=== PATIENT | female | born 1990 | race Caucasian/White ===

== ENCOUNTER → 2018-06-04 | Outpatient (CLI) | payer BC | LOC: MC.RAD 09:12 | DX: N64.59 Other signs and symptoms in breast (principal); Z98.890 Other specified postprocedural states ==

== ENCOUNTER 2020-06-18 15:11 | Emergency (ER) | payer BC ==
[~2020-06-18] VITALS: Ht 157.5 cm; Wt 63.6 kg
[2020-06-18 15:23] VITALS: BP 119/84; TEMP 98
[2020-06-18 16:08] LABS: BASO # 0.1 (0.0-0.2); BASO % 0.5 % (0.0-2.0); EOS # 0.1 (0.0-0.7); EOS % 1.1 % (0-4.0); GRAN # 7.3 (1.4-6.5); GRAN % 63.3 % (42.2-75.2); HEMATOCRIT 40.9 % (37.0-47.0); HEMOGLOBIN 13.3 g/dl (12.5-16.0); LYMPH # 3.2 (1.2-3.4); LYMPH % 27.6 % (20.0-51.0); MEAN CELL VOLUME 96 fl (80.0-100.0); MEAN CORPUSCULAR HEMOGLOBIN 31 pg (27.0-31.0); MEAN CORPUSCULAR HGB CONC 33 g/dl (33.0-37.0); MEAN PLATELET VOLUME 9.4 fl (7.4-10.4); MONO # 0.8 (0.1-0.6); PLATELET COUNT 291 K/mm3 (130-400); RED BLOOD COUNT 4.28 M/mm3 (4.10-5.30); REDCELL DISTRIBUTION WIDTH-CV 12.7 % (11.5-14.5)
[2020-06-18 16:18] LABS: BILIRUBIN,TOTAL 0.8 mg/dL (0.0-1.0); C-REACTIVE PROTEIN 0.7 mg/dL (0.0-0.9); CALCIUM 9.9 mg/dL (8.4-10.2); CREATININE, serum 0.67 (0.52-1.25); POTASSIUM 4.2 mmol/L (3.4-5.0); TOTAL PROTEIN 8.9 gm/dL (6.4-8.2)
[2020-06-18 16:19] LABS: COLLECTION METHOD CLEAN CATCH
[2020-06-18 16:24] LABS: MUCOUS Present /lpf; PH 6 (5-8); URINE APPEARANCE Hazy; URINE BACTERIA Rare /hpf; URINE BILIRUBIN Negative (NEGATIVE); URINE BLOOD 1+ (NEGATIVE); URINE COLOR Yellow; URINE GLUCOSE Negative (NEGATIVE); URINE KETONE Negative (NEGATIVE); URINE LEUKOCYTE ESTERASE Negative (NEGATIVE); URINE NITRATE Negative (NEGATIVE); URINE PROTEIN(semi-quant) Negative (NEGATIVE); URINE RBC 0-2 /hpf; URINE UROBILINOGEN Negative (NEGATIVE)
[2020-06-18 16:32] LABS: PROLACTIN 19.9 ng/mL (3.0-18.6)
[2020-06-18] MEDS ORDERED: KEPPRA 500MG500 MG PO (17:33)
[2020-06-18 17:52] VITALS: PULSE 76
== END 2020-06-18 17:52 | disposition home or self-care (01) ==
LOC: COL.ER 15:11
PROVIDERS: Nurse Practitioner
DX: G40.909 Epilepsy, unspecified, not intractable, without status epilepticus (principal); Z32.02 Encounter for pregnancy test, result negative
CPT/HCPCS: J1953

== ENCOUNTER 2021-05-07 02:03 | Emergency (ER) | payer BC ==
[~2021-05-07] VITALS: Ht 157.5 cm; Wt 56.8 kg
[~2021-05-07 02:03] MED LIST: KEPPRA 500MG500 MG PO
[2021-05-07 02:42] LABS: BASO % 0.3 % (0.0-2.0); EOS # 0.2 K/mm3 (0.0-0.7); EOS % 1.7 % (0-4.0); GRAN # 5.9 K/mm3 (1.4-6.5); GRAN % 67.9 % (42.2-75.2); HEMOGLOBIN 11.2 g/dl (12.5-16.0); LYMPH # 1.8 K/mm3 (1.2-3.4); LYMPH % 20.9 % (20.0-51.0); MEAN CELL VOLUME 82 fl (80.0-100.0); MEAN CORPUSCULAR HEMOGLOBIN 27 pg (27.0-31.0); MEAN CORPUSCULAR HGB CONC 33 g/dl (33.0-37.0); MEAN PLATELET VOLUME 11.6 fl (7.4-10.4); MONO # 0.8 K/mm3 (0.1-0.6); PLATELET COUNT 254 K/mm3 (130-400); RED BLOOD COUNT 4.21 M/mm3 (4.10-5.30); REDCELL DISTRIBUTION WIDTH-CV 16.7 % (11.5-14.5)
[2021-05-07 02:45] LABS: HEMATOCRIT 34.4 % (37.0-47.0)
[2021-05-07 02:58] LABS: ALANINE AMINOTRANSFERASE 47 U/L (0-55); ALBUMIN 3.1 gm/dL (3.5-5.0); ALKALINE PHOSPHATASE 80 U/L (0-750); ANION GAP 10 mmol/L (7-16); AST,SGOT 42 U/L (5-34); BILIRUBIN,TOTAL 0.4 mg/dL (0.2-1.2); BLOOD UREA NITROGEN 10 mg/dL (7-19); CALCIUM 10.2 mg/dL (8.4-10.2); CARBON DIOXIDE 21 mmol/L (22-29); CHLORIDE 107 mmol/L (98-107); CREATININE, serum 0.63 mg/dL (0.57-1.11); GLUCOSE 100 mg/dL (70-99); POTASSIUM 3.4 mmol/L (3.5-4.5); SODIUM 138 mmol/L (136-145)
[2021-05-07 03:31] LABS: LIPASE 83 U/L (8-78)
[2021-05-07 03:36] LABS: TROPONIN-I < 0.010 ng/mL (0.00-0.033)
[2021-05-07 04:12] VITALS: BP 108/73; PULSE 86; TEMP 98.5
== END 2021-05-07 04:12 | disposition home or self-care (01) ==
LOC: COL.ER 02:03
PROVIDERS: Emergency Medicine
DX: O26.892 Other specified pregnancy related conditions, second trimester (principal); R10.13 Epigastric pain; Z3A.00 Weeks of gestation of pregnancy not specified
CPT/HCPCS: J2765

== ENCOUNTER 2021-10-22 07:47 | Inpatient (IN) | payer BC ==
[~2021-10-22] VITALS: Ht 160 cm; Wt 66.8 kg
--- NOTE | 2021-10-23 19:10 | NUR ---
G1L0. 40-0. Ambulatory to LDR 6 with spouse. Clean gown on. EFM and TOCO explained and applied. Plan of care and questions answered. Pt speaks little french but is able to translate for her. Pt denies contractions, leaking of fluids or vaginal bleeding. Reports good movment. VS taken. 1935: IV started and labs obtained via IV site. LR bolus infusing. 2003: called and updated on pt. See physican notification. 2014: SVE closed/thigh/high. Cytotec explained and given PO per orders. All of pts questions answered. Call light within reach.
[2021-10-23] MEDS ORDERED: KEPPRA 500MG500 MG PO (19:56)
[2021-10-23] MEDS ORDERED: FOLIC ACID 40400 MCG PO (19:57)
[2021-10-23 20:00] VITALS: BP 118/67; PULSE 64; TEMP 98.1
[2021-10-23 20:30] VITALS: BP 123/75; PULSE 71
[2021-10-23 20:34] LABS: BASO % 0.3 % (0.0-2.0); EOS # 0.1 K/mm3 (0.0-0.7); EOS % 1.2 % (0.0-4.0); GRAN % 76.6 % (42.2-75.2); HEMATOCRIT 37.3 % (37.0-47.0); HEMOGLOBIN 12.7 g/dl (12.5-16.0); LYMPH # 1.6 K/mm3 (1.2-3.4); LYMPH % 13.9 % (20.0-51.0); MEAN CELL VOLUME 87 fl (80.0-100.0); MEAN CORPUSCULAR HEMOGLOBIN 30 pg (27-31); MEAN CORPUSCULAR HGB CONC 34 g/dl (33.0-37.0); MEAN PLATELET VOLUME 11.6 fl (7.4-10.4); MONO # 0.9 K/mm3 (0.1-0.6); MONO % 7.7 % (1.7-9.3); PLATELET COUNT 237 K/mm3 (130-400); RED BLOOD COUNT 4.28 M/mm3 (4.10-5.30); REDCELL DISTRIBUTION WIDTH-CV 14.5 % (11.5-14.5)
[2021-10-23 21:00] VITALS: BP 103/62; PULSE 65
[2021-10-23 21:30] VITALS: BP 117/65; PULSE 65
[2021-10-23 22:00] VITALS: BP 111/74; PULSE 68
[2021-10-24] VITALS (66 sets, daily range): BP systolic 96–149; BP diastolic 54–81; PULSE 51–121; TEMP 98.1–99.8
--- NOTE | 2021-10-24 06:30 | NUR ---
Report received, care assumed. Patient rest in bed, sleeps between disturbances. Plan of care reviewed with patient and spouse and questions answered. EFM off at this time for personal hygiene.
--- NOTE | 2021-10-24 08:00 | NUR ---
0730 Pitocin started at 2mu per orders and protocol.
--- NOTE | 2021-10-24 08:20 | NUR ---
Roles to room, discusses plan of care with patient and spouse, reviews FHR tracing.
--- NOTE | 2021-10-24 09:57 | NUR ---
929 Patient request epidural. OPTOMETRIST ASSISTANT notified. IVF bolus started. 939 OPTOMETRIST ASSISTANT to room to place epidural. Patient sits upright on the side of the bed. FHR difficult to monitor in this position and intermittently traces maternal HR per spO2 tracing. 956 Test dose by OPTOMETRIST ASSISTANT. See anesthesia record for details of procedure.
--- NOTE | 2021-10-24 12:45 | NUR ---
Dr. Blake to room, SVE with AROM. 2 with clear fluid noted. Bedside sono by Dr. Blake confirms vertex presentation. IUPC placed by Dr. Blake.
--- NOTE | 2021-10-24 17:30 | NUR ---
1730 Dr. Blake at bedside, SVE - complete/+2. 1740 Patient begins pushing with contractions, Dr. Blake remains on unit reviewing FHR tracing.
--- NOTE | 2021-10-24 18:15 | NUR ---
1800 Patient pushing well, mays removed. Dr. Blake remains on unit reviewing FHR tracing. 1802 Dr. Blake to room, patient continues to push with contractions. 1810 Patient prepped for delivery. 181 JERSON Whipple assumes care of patient.
--- NOTE | 2021-10-24 18:56 | NUR ---
of female infnat by Dr Blake. 1858 Placenta delivers spont and intact, Pitocin gtt to bolus. Lochia large amount 1801 Methergine 0.2mg IM to LAT. St cath with large amount return clear yellow urine.
--- NOTE | 2021-10-24 19:00 | NUR ---
Perineal repair in progress.
--- NOTE | 2021-10-24 19:15 | NUR ---
Perineal repair complete, fundus firm with scant bleeding, no clots expressed. Pericare done, ice pack to perineum, bed together.
--- NOTE | 2021-10-24 19:18 | NUR ---
Left labia more sollen than R labia. Dr Blake checks for hematoma, none palpated. Ice pack placed.
--- NOTE | 2021-10-24 19:25 | NUR ---
Emesis 250cc.
--- NOTE | 2021-10-24 20:10 | NUR ---
emesis 200cc 2014 Zofran 4mg IV for nausea and vomitting
--- NOTE | 2021-10-24 21:45 | NUR ---
epidural dc'd, IV to INT. Pivot transfer to wheelchair and moved to post- room. Oriented to room, monitor, plan of care.
[2021-10-25 08:25] VITALS: BP 103/54; PULSE 62; TEMP 97.4
--- NOTE | 2021-10-25 09:11 | NUR ---
Initial visit; Parents thanked Undercoat Sprayer for offering congratulations and blessings for the of their daughter. Undercoat Sprayer thanked family for choosing [facility].
[2021-10-25 12:30] VITALS: BP 88/52; PULSE 85; TEMP 97.8
[2021-10-25 17:00] VITALS: BP 90/54; PULSE 70; TEMP 98
[2021-10-25 20:00] VITALS: BP 111/59; PULSE 78; TEMP 98.3
[2021-10-26 08:00] VITALS: BP 88/52; PULSE 86; TEMP 98.3
[2021-10-26] MEDS ORDERED: IBU800 M1 PO (10:13)
--- NOTE | 2021-10-26 10:21 | NUR ---
0941 YASMEEN RILEY LINEMAN APPRENTICE NOTIFIED THAT THE PT IS HAVING A HEADACHE AND FEELS BAD WHEN SITTING UP IN BED AND BETTER WHEN LAYING FLAT IN BED. HE WILL COME EVALUATE HER.
== END 2021-10-26 16:30 | disposition home or self-care (01) | DRG 768 ==
LOC: LDR 10-23 07:47 → OB 10-24 21:45
PROVIDERS: ADMIT Obstetrics & Gynecology
PROC: 10E0XZZ Delivery of Products of Conception, External Approach (ICD-10-PCS; principal; 2021-10-23)
PROC: 0DQR0ZZ Repair Anal Sphincter, Open Approach (ICD-10-PCS; 2021-10-23)
PROC: 10907ZC Drainage of Amniotic Fluid, Therapeutic from Products of Conception, Via Natural or Artificial Opening (ICD-10-PCS; 2021-10-23)
PROC: 3E0P7VZ Introduction of Hormone into Female Reproductive, Via Natural or Artificial Opening (ICD-10-PCS; 2021-10-23)
PROC: 3E033VJ Introduction of Other Hormone into Peripheral Vein, Percutaneous Approach (ICD-10-PCS; 2021-10-23)
DX: O99.354 Diseases of the nervous system complicating childbirth (principal); Z37.0 Single live birth; G40.909 Epilepsy, unspecified, not intractable, without status epilepticus; O72.1 Other immediate postpartum hemorrhage; O70.20 Third degree perineal laceration during delivery, unspecified; O90.89 Other complications of the puerperium, not elsewhere classified; R33.9 Retention of urine, unspecified; O89.4 Spinal and epidural anesthesia-induced headache during the puerperium; Z3A.40 40 weeks gestation of pregnancy; Z23 Encounter for immunization
CPT/HCPCS: J2210; J2405; J2590; J7120

== ENCOUNTER 2023-11-27 14:48 | Inpatient (IN) | payer MEDICAID ==
[~2023-11-27] VITALS: Ht 157.5 cm; Wt 64.5 kg
[~2023-11-27 14:48] MED LIST changes: +FOLIC ACID 40400 MCG PO; +IBU800 M1 PO
[2023-11-27 20:00] VITALS: BP 101/61; PULSE 63; TEMP 98.2
[2023-11-27] MEDS ORDERED: LR & Oxytocin 500 ML IV SCH ×3 (20:15)
[2023-11-27] MEDS ORDERED: miSOPROStol 25 MCG (1/4th of 100 MCG) TAB VG SCH (20:15)
[2023-11-27] MEDS ORDERED: LR 1,000 ML IV SCH ×2 (20:15)
[2023-11-27] MEDS ORDERED: Terbutaline 1 MG/ML 1 ML AMP SQ PRN (20:15)
[2023-11-27 20:50] LABS: BASO # 0.1 K/mm3 (0.0-0.2); BASO % 0.5 % (0.0-2.0); EOS # 0.1 K/mm3 (0.0-0.7); EOS % 1.2 % (0.0-4.0); GRAN # 6.7 K/mm3 (1.4-6.5); GRAN % 71.5 % (42.2-75.2); HEMATOCRIT 38.2 % (37.0-47.0); HEMOGLOBIN 12.8 g/dl (12.5-16.0); LYMPH # 1.8 K/mm3 (1.2-3.4); LYMPH % 19.2 % (20.0-51.0); MEAN CELL VOLUME 86 fl (80.0-100.0); MEAN CORPUSCULAR HEMOGLOBIN 29 pg (27-31); MEAN CORPUSCULAR HGB CONC 34 g/dl (33.0-37.0); MEAN PLATELET VOLUME 12.2 fl (7.4-10.4); MONO # 0.7 K/mm3 (0.1-0.6); MONO % 7.3 % (1.7-9.3); PLATELET COUNT 195 K/mm3 (130-400); RED BLOOD COUNT 4.47 M/mm3 (4.10-5.30)
--- NOTE | 2023-11-27 22:06 | NUR ---
PT STATE SHE IS NOT FEELING ANY CTX'S AT THIS TIME.
--- NOTE | 2023-11-27 22:42 | NUR ---
PT UP AND AMB TO BR TO VOID. NO COMPLAINTS AT THIS TIME.
[2023-11-27 23:00] VITALS: TEMP 97.9
[2023-11-28] VITALS (46 sets, daily range): BP systolic 91–143; BP diastolic 42–92; PULSE 51–75; TEMP 97.3–98.1
--- NOTE | 2023-11-28 08:00 | NUR ---
GLUCOMETER NOT READING PT'S WRISTBAND OR V NUMBER. GLUCOSE TAKEN AT THIS TIME. RESULT - 89
[2023-11-28] MEDS ORDERED: diphenhydrAMINE 50 MG/ML 1 ML VIAL IV PRN (09:00)
[2023-11-28] MEDS ORDERED: diphenhydrAMINE 25 MG CAP PO PRN (09:00)
[2023-11-28] MEDS ORDERED: Naloxone 0.4 MG/ML VIAL IV PRN ×2 (09:00→17:45)
[2023-11-28] MEDS ORDERED: ePHEDrine 50 MG/10 ML VIAL IV PRN (09:00)
[2023-11-28] MEDS ORDERED: Ondansetron 4 MG/2 ML VIAL IV PRN (09:00)
--- NOTE | 2023-11-28 09:00 | NUR ---
ROLES IN PT'S ROOM. DISCUSSING PLAN OF CARE WITH PT. PT VERBALIZES UNDERSTANDING.
--- NOTE | 2023-11-28 11:00 | NUR ---
GLUCOSE AT THIS TIME - 114
--- NOTE | 2023-11-28 14:10 | NUR ---
GLUCOSE AT THIS TIME - 101
--- NOTE | 2023-11-28 14:25 | NUR ---
1410 THIS RN AT BEDSIDE ASSESSING AND TALKING WITH PT. 1411 FHR HAVING DECELERATION 1411 PT WEDGED LEFT 1413 PT WEDGED RIGHT 1415 PT IN HIGH FOWLERS. PITOCIN SHUT OFF. 1416 SVE /-2. PT WEDGED LEFT AFTER SVE. 1420 FHR RECOVERING. THIS RN REMAINS AT BEDSIDE TILL 1425, REASSURING PT AND SUPPORT PERSON.
--- NOTE | 2023-11-28 14:35 | NUR ---
ROLES ON UNIT. DR ROLES AND THIS RN DISCUSS FHR DECELERATION. ROLES ORDERS TO RESTART PITOCIN ACCORDING TO PITOCIN PROTOCOL.
[2023-11-28] MEDS ORDERED: Acetaminophen 500 MG TAB PO SCH (17:45)
[2023-11-28] MEDS ORDERED: Measles/Mumps/Rubella Virus Vaccine Live w Diluent 0.5 ML VIAL SQ SCH (17:45)
[2023-11-28] MEDS ORDERED: oxyCODONE 5 MG TAB PO PRN (17:45)
[2023-11-28] MEDS ORDERED: Loratadine 10 MG TAB PO PRN (17:45)
[2023-11-28] MEDS ORDERED: Magnes Hydrox (MOM) 80 MG/ML 30 ML CUP PO PRN (17:45)
[2023-11-28] MEDS ORDERED: Mag/Al Hydrox/Simeth Susp 30 ML CUP PO PRN (17:45)
[2023-11-28] MEDS ORDERED: Phenylephrine/Mineral Oil/Petrolatum 57 GM TUBE RC PRN (17:45)
[2023-11-28] MEDS ORDERED: Witch Hazel 50% Pads Bulk TUB TP PRN (17:45)
[2023-11-28] MEDS ORDERED: Ibuprofen 800 MG TAB PO SCH (17:45)
[2023-11-28] MEDS ORDERED: MOTRIN 800800 MG/TAB PO (19:31)
[2023-11-29 07:25] VITALS: BP 103/53; PULSE 55; TEMP 98.2
[2023-11-29] MEDS ORDERED: Sennosides/Docusate 8.6-50 MG TAB PO SCH (08:00)
[2023-11-29] MEDS ORDERED: levETIRAcetam 500 MG TAB PO SCH (09:00)
--- NOTE | 2023-11-29 10:00 | NUR ---
Pt up to the bathroom. Pt was only able to void 100ml and reports she feels like she needs to go more but is not able to. Bladder scan done. Scan showed 1000ml urine in her bladder.
--- NOTE | 2023-11-29 10:30 | NUR ---
Straight cath done without complications. Encouraged pt up get up more frequently to void and call for assistance if needed. Call light within reach.
[2023-11-29 12:30] VITALS: BP 98/65; PULSE 64; TEMP 97.9
[2023-11-29 17:30] VITALS: BP 103/63; PULSE 60; TEMP 97.4
[2023-11-29 20:00] VITALS: BP 120/63; PULSE 57; TEMP 97.7
[2023-11-30 07:18] VITALS: BP 109/70; PULSE 50; TEMP 97.6
== END 2023-11-30 14:00 | disposition home or self-care (01) | DRG 806 ==
LOC: OB 14:48 → LDR 19:22 → OB 11-29
PROVIDERS: ADMIT Obstetrics & Gynecology
PROC: 10E0XZZ Delivery of Products of Conception, External Approach (ICD-10-PCS; principal; 2023-11-28)
PROC: 0KQM0ZZ Repair Perineum Muscle, Open Approach (ICD-10-PCS; 2023-11-28)
PROC: 3E033VJ Introduction of Other Hormone into Peripheral Vein, Percutaneous Approach (ICD-10-PCS; 2023-11-28)
DX: O36.5930 Maternal care for other known or suspected poor fetal growth, third trimester, not applicable or unspecified (principal); O99.354 Diseases of the nervous system complicating childbirth; Z37.0 Single live birth; Z3A.38 38 weeks gestation of pregnancy; O24.420 Gestational diabetes mellitus in childbirth, diet controlled; G40.909 Epilepsy, unspecified, not intractable, without status epilepticus; O70.1 Second degree perineal laceration during delivery
CPT/HCPCS: J2590; J7120